=== PATIENT | male | born 1965 | race Caucasian/White ===

== ENCOUNTER 2021-02-10 20:26 | Emergency (ER) | payer OTHER ==
--- NOTE | 2021-02-10 21:23 | EDM.PDOC ---
ED HPI GENERAL MEDICAL PROBLEM - General Chief Complaint: Respiratory Problem Stated Complaint: SORE THROAT/FEVER/BODY ACHES Time Seen by Provider: 02/10/21 21:10 Source of Information: Reports: Patient, RN Notes Reviewed History Limitations: Reports: No Limitations - History of Present Illness INITIAL COMMENTS - FREE TEXT/NARRATIVE: Patient is a 55-year-old male who presents to the ER for his multiple viral symptoms. Patient states that today he started with nasal congestion, dry cough with some blood-tinged sputum, sore throat, fevers at home with a temperature of 100.2 F at triage. Patient states that he was not vaccinated for COVID-19. He has not been around anyone else has been sick. States he has been working outside, and he was not sure if combination of the wind in the sand could have caused some issues. - Related Data Allergies Allergy/AdvReac Type Severity Reaction Status Date / Time Penicillins Allergy Severe Cannot Verified 02/10/21 21:18 Remember Home Meds: Home Meds Codeine/Promethazine [Phenergan with Codeine] 5 ml PO Q4HR PRN #120 ml 02/10/21 [Rx] ED ROS GENERAL - Review of Systems Review Of Systems: Comprehensive ROS is negative, except as noted in HPI. ED EXAM, GENERAL - Physical Exam Exam: See Below Exam Limited By: No Limitations General Appearance: Alert, WD/WN, No Apparent Distress Respiratory/Chest: No Respiratory Distress, Lungs Clear, Normal Breath Sounds, No Accessory Muscle Use, Chest Non-Tender Cardiovascular: Normal Peripheral Pulses, Regular Rate, Rhythm, No Edema Peripheral Pulses: 2+: Radial (L), Radial (R) Extremities: Normal Inspection, Normal Capillary Refill Neurological: Alert, Oriented, Normal Cognition, No Motor/Sensory Deficits Psychiatric: Normal Affect, Normal Mood Skin Exam: Warm, Dry, Intact, Normal Color, No Rash Course - Vital Signs Last Recorded V/S: Last Vital Signs Temp 100.2 F 02/10/21 21:15 Pulse 104 H 02/10/21 21:15 Resp 16 02/10/21 21:15 BP 143/95 H 02/10/21 21:15 Pulse Ox 97 02/10/21 21:15 - Orders/Labs/Meds Orders: Active Orders 24 hr Category Date Time Status Chest 1V Frontal [CR] Stat Exams 02/10/21 21:11 Ordered Labs: Laboratory Tests 02/10/21 02/10/21 02/10/21 Range/Units 21:10 21:25 21:25 WBC 6.66 (4.23-9.07) K/mm3 RBC 4.35 L (4.63-6.08) M/mm3 Hgb 14.1 (13.7-17.5) gm/dl Hct 42.8 (40.1-51.0) % MCV 98.4 H (79.0-92.2) fl MCH 32.4 H (25.7-32.2) pg MCHC 32.9 (32.2-35.5) g/dl RDW Std Deviation 50.5 H (35.1-43.9) fL Plt Count 186 (163-337) K/mm3 MPV 10.3 (9.4-12.3) fl Neut % (Auto) 48.5 (34.0-67.9) % Lymph % (Auto) 21.8 (21.8-53.1) % [place] % (Auto) 21.6 H (5.3-12.2) % Eos % (Auto) 6.8 (0.8-7.0) Baso % (Auto) 1.1 (0.1-1.2) % Neut # (Auto) 3.24 (1.78-5.38) K/mm3 Lymph # (Auto) 1.45 (1.32-3.57) K/mm3 [place] # (Auto) 1.44 H (0.30-0.82) K/mm3 Eos # (Auto) 0.45 (0.04-0.54) K/mm3 Baso # (Auto) 0.07 (0.01-0.08) K/mm3 Sodium 140 (136-145) mEq/L Potassium 3.6 (3.5-5.1) mEq/L Chloride 103 (98-107) mEq/L Carbon Dioxide 29 (21-32) mEq/L Anion Gap 11.6 (5-15) BUN 5 L (7-18) mg/dL Creatinine 1.3 (0.7-1.3) mg/dL Est Cr Clr Drug Dosing 60.65 mL/min Estimated GFR (MDRD) 57 (>60) mL/min BUN/Creatinine Ratio 3.8 L (14-18) Glucose 93 (70-99) mg/dL Calcium 9.0 (8.5-10.1) mg/dL Total Bilirubin 0.6 (0.2-1.0) mg/dL AST 54 H (15-37) U/L ALT 50 (16-63) U/L Alkaline Phosphatase 50 (46-116) U/L C-Reactive Protein 0.9 (<1.0) mg/dL Total Protein 8.0 (6.4-8.2) g/dl Albumin 4.3 (3.4-5.0) g/dl Globulin 3.7 gm/dL Albumin/Globulin Ratio 1.2 (1-2) SARS-CoV-2 RNA (ALIZA) Positive H (NEGATIVE) Group A Strep (PCR) (NOT DETECT) 02/10/21 Range/Units 21:30 WBC (4.23-9.07) K/mm3 RBC (4.63-6.08) M/mm3 Hgb (13.7-17.5) gm/dl Hct (40.1-51.0) % MCV (79.0-92.2) fl MCH (25.7-32.2) pg MCHC (32.2-35.5) g/dl RDW Std Deviation (35.1-43.9) fL Plt Count (163-337) K/mm3 MPV (9.4-12.3) fl Neut % (Auto) (34.0-67.9) % Lymph % (Auto) (21.8-53.1) % [place] % (Auto) (5.3-12.2) % Eos % (Auto) (0.8-7.0) Baso % (Auto) (0.1-1.2) % Neut # (Auto) (1.78-5.38) K/mm3 Lymph # (Auto) (1.32-3.57) K/mm3 [place] # (Auto) (0.30-0.82) K/mm3 Eos # (Auto) (0.04-0.54) K/mm3 Baso # (Auto) (0.01-0.08) K/mm3 Sodium (136-145) mEq/L Potassium (3.5-5.1) mEq/L Chloride (98-107) mEq/L Carbon Dioxide (21-32) mEq/L Anion Gap (5-15) BUN (7-18) mg/dL Creatinine (0.7-1.3) mg/dL Est Cr Clr Drug Dosing mL/min Estimated GFR (MDRD) (>60) mL/min BUN/Creatinine Ratio (14-18) Glucose (70-99) mg/dL Calcium (8.5-10.1) mg/dL Total Bilirubin (0.2-1.0) mg/dL AST (15-37) U/L ALT (16-63) U/L Alkaline Phosphatase (46-116) U/L C-Reactive Protein (<1.0) mg/dL Total Protein (6.4-8.2) g/dl Albumin (3.4-5.0) g/dl Globulin gm/dL Albumin/Globulin Ratio (1-2) SARS-CoV-2 RNA (ALIZA) (NEGATIVE) Group A Strep (PCR) Not detected (NOT DETECT) Meds: Medications Discontinued Medications Generic Name Dose Route Start Last Admin Trade Name Freq PRN Reason Stop Dose Admin Promethazine HCl/Codeine 10 ml 02/10/21 22:40 Codeine/Promethazine 10-6.25 Mg/5 Ml Syrup 5 Ml Ud Cup PO 02/10/21 22:41 ONETIME ONE - Re-Assessments/Exams Free Text/Narrative Re-Assessment/Exam: 02/10/21 21:22 Patient presents to the ER for the evaluation of his multiple upper respiratory symptoms. We will get a COVID-19 swab, strep swab, basic labs and a chest x-ray for further evaluation. 02/10/21 22:12 Laboratories computer has gone down apparently but they did call back and said that the patient was Covid positive, strep was negative, and the remaining portion of the CMP is essentially unremarkable. The patient's CRP is 0.9. Since the patient only started having symptoms today, we will have him monitor his symptoms and follow-up in Covid clinic if he should worsen, to see if he can be given some monoclonal antibody therapy on outpatient basis. Departure - Departure Time of Disposition: 22:12 Disposition: Home, Self-Care 01 Condition: Good Clinical Impression: COVID-19 - Discharge Information *PRESCRIPTION DRUG MONITORING PROGRAM REVIEWED*: No *COPY OF PRESCRIPTION DRUG MONITORING REPORT IN PATIENT ADRIANA: No Prescriptions: Codeine/Promethazine [Phenergan with Codeine] 5 ml PO Q4HR PRN #120 ml PRN Reason: Cough Instructions: COVID-19 Frequently Asked Questions, 10 Things You Can Do to Manage Your COVID-19 Symptoms at Home - [facility] (11/21/2020) Referrals: PCP,Not In Area [Primary Care Provider] - Forms: ED Department Discharge Additional Instructions: You were seen in the ER today for ongoing and/or worsening respiratory symptoms. Your chest x-ray showed subtle signs of viral pneumonia at this time; which is typical for COVID-19. Your oxygen levels were great at 96-97% on room air. Please try to increase your oral fluid intake, and eat multiple small meals throughout the day, to keep yourself healthy. You need to keep yourself nourished in order to fight off this disease. You can try a liquid diet like gatorade/powerade as well to get your electrolytes. You may take 500 mg Tylenol every hours 6 hours for pain/fever relief. Do not exceed 4000 mg Tylenol in a 24-hour time span. However, running a fever is your body's natural response to illness, and it allows the body to develop antibodies to disease, we are recommending trying to limit the use of Tylenol as much as possible to allow your body's natural immune response. You were given a prescription for some cough medicine, you may take 10 mL p.o. every 4-6 hours as needed for cough. This medication was electronically sent to the [place] pharmacy located in the [facility] grocery store. Recommend you obtain a pulse oximeter and monitor your oxygen levels at home, you should place the monitor on your finger, and sit in a calm, quiet position for a few minutes and then record the number that is on the screen. If this consistently below 90% on room air without movement, this would be cause for concern to come back to the hospital for further management of your COVID-19 disease. Please follow all guidance set forth from [facility], regarding isolation purposes for your disease process. General isolation times are 10 days from when you started being symptomatic. I would recommend that you keep in touch with our Covid clinic, , and obtain an appointment sometime this week for reevaluation and to make sure that your symptoms are getting better as expected. You may qualify for monoclonal antibody therapy, that can be done on outpatient basis, but you will need to have a provider assess you for this, if your symptoms should worsen. Sepsis Event Note (ED) - Evaluation Sepsis Screening Result: No Definite Risk - Focused Exam Vital Signs: Vital Signs Temp Pulse Resp BP Pulse Ox 02/10/21 21:15 100.2 F 104 H 16 143/95 H 97 - My Orders Last 24 Hours: My Active Orders 02/10/21 21:11 Chest 1V Frontal [CR] Stat - Assessment/Plan Last 24 Hours: My Active Orders 02/10/21 21:11 Chest 1V Frontal [CR] Stat
[2021-02-10] MEDS ORDERED: Codeine/Promethazine 10-6.25 MG/5 ML Syrup 5 ML UD Cup PO ONE (22:40)
--- NOTE | 2021-02-11 07:52 | CR ---
Chest: Frontal view of the chest was obtained. Comparison: No prior chest imaging is available. Heart size and mediastinum are normal. Lungs are clear with no acute parenchymal change. Slight scoliosis is noted within the spine. Mild degenerative change is seen within the spine. Prior cervical spine surgery is noted. Impression: 1. Incidental findings as described above. 2. Nothing acute is definitely seen on frontal chest x-ray. Diagnostic code #2
== END 2021-02-10 23:00 | disposition home or self-care (01) ==
LOC: JD.ED 20:26
DX: U07.1 COVID-19 (principal); Z88.0 Allergy status to penicillin
CPT/HCPCS: 36415; 71045; 71045-26; 80053; 85025; 86140; 87651-QW; 99283-25; U0002

== ENCOUNTER 2021-02-13 15:45 | Emergency (ER) | payer OTHER ==
--- NOTE | 2021-02-13 18:13 | CR ---
Chest: Portable view of the chest was obtained. Comparison: Prior chest x-ray of 02/10/21. Heart size and mediastinum are within normal limits. Minimal parenchymal density is seen within the left lung base. Difficult to exclude small area of pneumonia. Lungs otherwise are clear. Prior cervical spine surgery is noted. Scattered degenerative spurring is noted within the spine. Surgical clips are seen from prior cholecystectomy. Impression: 1. Slight parenchymal density within the left lung base presumably due to pneumonia. 2. Other findings which are believed to be incidental as described above. Diagnostic code #3
[2021-02-13] MEDS ORDERED: Dexamethasone 4 MG Tab PO ONE (18:57)
--- NOTE | 2021-02-13 18:57 | EDM.PDOC ---
ED HPI GENERAL MEDICAL PROBLEM - General Chief Complaint: Respiratory Problem Stated Complaint: COVID +/LOW O2 Time Seen by Provider: 02/13/21 16:22 Source of Information: Reports: Patient History Limitations: Reports: No Limitations - History of Present Illness INITIAL COMMENTS - FREE TEXT/NARRATIVE: 55-year-old male presents the emergency department today with complaints of wo rsening Covid symptoms and increasing shortness of breath. Patient states that he started having symptoms and tested positive for Covid on 02/10/2021, 3 days ago. He was seen here in the emergency department however did not receive any monoclonal antibody treatment at that time. Patient is concerned as he states his home oxygen has been 86%. Onset: Other (ED vital signs reveal a temp of 97.3, pulse 100, respiratory rate of 20, blood pressure 128/81, pulse ox 86% on room air) Neck Pain Score (Numeric/FACES): 7 - Related Data Allergies Allergy/AdvReac Type Severity Reaction Status Date / Time Penicillins Allergy Severe Cannot Verified 02/13/21 16:18 Remember Home Meds: Home Meds Codeine/Promethazine [Phenergan with Codeine] 5 ml PO Q4HR PRN #120 ml 02/10/21 [Rx] Albuterol Sulfate [Albuterol Sulfate HFA] 8.5 gm INH Q2H PRN #1 ea 02/13/21 [Rx] Benzonatate [Tessalon Perle] 100 mg PO TID PRN #20 capsule 02/13/21 [Rx] dexAMETHasone [Dexamethasone] 6 mg PO DAILY #14 tablet 02/13/21 [Rx] Past Medical History - Infectious Disease History Infectious Disease History: Reports: Novel Coronavirus - Past Surgical History GI Surgical History: Reports: Cholecystectomy Social & Family History - Tobacco Use Tobacco Use Status *Q: Never Tobacco User Second Hand Smoke Exposure: No - Caffeine Use Caffeine Use: Reports: Coffee - Recreational Drug Use Recreational Drug Use: No ED ROS GENERAL - Review of Systems Review Of Systems: Comprehensive ROS is negative, except as noted in HPI. ED EXAM, GENERAL - Physical Exam Exam: See Below Exam Limited By: No Limitations General Appearance: Alert, WD/WN, Mild Distress Ears: Normal External Exam, Hearing Grossly Normal Nose: Normal Inspection Throat/Mouth: Normal Inspection, Normal Lips, Normal Voice, No Airway Compromise Head: Atraumatic Neck: Normal Inspection, Supple Respiratory/Chest: Normal Breath Sounds, No Accessory Muscle Use, Chest Non- Tender, Respiratory Distress, Crackles (Fine crackles noted to bilateral bases). No: Lungs Clear Cardiovascular: Normal Peripheral Pulses, Regular Rate, Rhythm, No Edema, No Murmur Peripheral Pulses: 2+: Radial (L), Radial (R) GI/Abdominal: Normal Bowel Sounds, Soft, Non-Tender, No Distention (Male) Exam: Deferred Rectal (Males) Exam: Deferred Back Exam: Normal Inspection Extremities: Normal Inspection Neurological: Alert, Oriented, Normal Cognition Psychiatric: Normal Affect, Normal Mood Skin Exam: Warm, Dry, Intact, Normal Color, No Rash Lymphatic: No Adenopathy Course - Vital Signs Text/Narrative:: 55-year-old male who as stated above presents with worsening shortness of breath associated with Covid. Upon exam, the patient's O2 saturations are 87% on room air. O2 was applied at 2 L per nasal cannula and the patient's oxygen saturations increased to 97%. Lung sounds are diminished with crackles noted to the bilateral bases. Will obtain a portable chest x-ray and lab studies to include a CBC, CMP, C-reactive protein, magnesium level as well as a D-dimer. Last Recorded V/S: Last Vital Signs Temp 99.6 F 02/13/21 17:20 Pulse 96 02/13/21 17:20 Resp 20 02/13/21 17:20 BP 115/83 02/13/21 17:20 Pulse Ox 100 02/13/21 17:20 - Orders/Labs/Meds Labs: Laboratory Tests 02/13/21 02/13/21 02/13/21 Range/Units 17:01 17:01 17:07 WBC 5.63 (4.23-9.07) K/mm3 RBC 4.50 L (4.63-6.08) M/mm3 Hgb 14.5 (13.7-17.5) gm/dl Hct 44.4 (40.1-51.0) % MCV 98.7 H (79.0-92.2) fl MCH 32.2 (25.7-32.2) pg MCHC 32.7 (32.2-35.5) g/dl RDW Std Deviation 51.4 H (35.1-43.9) fL Plt Count 158 L (163-337) K/mm3 MPV 10.1 (9.4-12.3) fl Neut % (Auto) 59.8 (34.0-67.9) % Lymph % (Auto) 22.9 (21.8-53.1) % [place] % (Auto) 16.5 H (5.3-12.2) % Eos % (Auto) 0.2 L (0.8-7.0) Baso % (Auto) 0.4 (0.1-1.2) % Neut # (Auto) 3.37 (1.78-5.38) K/mm3 Lymph # (Auto) 1.29 L (1.32-3.57) K/mm3 [place] # (Auto) 0.93 H (0.30-0.82) K/mm3 Eos # (Auto) 0.01 L (0.04-0.54) K/mm3 Baso # (Auto) 0.02 (0.01-0.08) K/mm3 D-Dimer, Quantitative 0.59 H (0.19-0.50) mg/L Sodium 133 L (136-145) mEq/L Potassium 4.5 (3.5-5.1) mEq/L Chloride 95 L (98-107) mEq/L Carbon Dioxide 31 (21-32) mEq/L Anion Gap 11.5 (5-15) BUN 12 (7-18) mg/dL Creatinine 1.3 (0.7-1.3) mg/dL Est Cr Clr Drug Dosing 60.65 mL/min Estimated GFR (MDRD) 57 (>60) mL/min BUN/Creatinine Ratio 9.2 L (14-18) Glucose 95 (70-99) mg/dL Calcium 8.9 (8.5-10.1) mg/dL Magnesium 2.0 (1.8-2.4) mg/dL Total Bilirubin 0.3 (0.2-1.0) mg/dL AST 64 H (15-37) U/L ALT 57 (16-63) U/L Alkaline Phosphatase 43 L (46-116) U/L C-Reactive Protein 1.1 H* (<1.0) mg/dL Total Protein 7.6 (6.4-8.2) g/dl Albumin 3.8 (3.4-5.0) g/dl Globulin 3.8 gm/dL Albumin/Globulin Ratio 1.0 (1-2) - Re-Assessments/Exams Free Text/Narrative Re-Assessment/Exam: 02/13/21 18:55 Radiologist impression portable view of the chest: 1. Slight parenchymal density within the left lung base presumably due to pneumonia. 2. Other findings which are believed to be incidental as described above. 02/13/21 18:56 Hematology reveals a WBC of 5.63, hemoglobin 14.5, hematocrit 44.4, platelet count 158 Coagulation reveals a D-dimer of 0.59 Chemistry reveals a sodium 133, potassium 4.5, carbon dioxide 31, anion gap 11.5, BUN 12, creatinine 1.3, glucose 95, magnesium 2.0, C-reactive protein 1.1 Patient does meet criteria for hospitalization however there are no beds available at this facility or at either of the hospitals in the local area. Patient is not wanting to be transported out of state. He will be discharged h ome with oxygen and dexamethasone. We will also order an albuterol inhaler for this patient. Departure - Departure Time of Disposition: 19:03 Disposition: Home, Self-Care 01 Condition: Good Clinical Impression: Hypoxemia, Pneumonia due to COVID-19 virus - Discharge Information Prescriptions: Albuterol Sulfate [Albuterol Sulfate HFA] 8.5 gm INH Q2H PRN #1 ea PRN Reason: Shortness Of Breath dexAMETHasone [Dexamethasone] 6 mg PO DAILY #14 tablet Benzonatate [Tessalon Perle] 100 mg PO TID PRN #20 capsule PRN Reason: Cough Referrals: PCP,None [Primary Care Provider] - Additional Instructions: You were seen in the emergency department with worsening shortness of breath associated with Covid. Chest x-ray was completed which did show some pneumonia however this is viral in origin and cannot be treated with antibiotics. Lab studies were also completed which were essentially unremarkable. You are being sent home on oxygen. You can use 2 L for shortness of breath. While you are in the emergency department you received a steroid called dexamethasone. A prescription for this medication has been sent to your pharmacy. You will need to take 6 mg daily for the next 9 days starting tomorrow. This should help to decrease inflammation and severity of Covid. I have also sent a prescription for a medication called Tessalon Perles which are used for cough. You can take 1-2 tabs up to 3 times daily for cough. And albuterol inhaler has been prescribed as well. You may use 2 puffs up to every 2 hours as needed for shortness of breath. Keep in mind if you are consistently using this every 2 hours that it can cause a racing heartbeat. Go home and rest. Be sure to drink plenty of fluids and eat small frequent meals. You will need to be reevaluated once you are off of quarantine by a primary care provider to decide how much longer you will need to use the oxygen for. Should your condition worsen or change, do not hesitate returning to the emergency department. Sepsis Event Note (ED) - Evaluation Sepsis Screening Result: No Definite Risk - Focused Exam Vital Signs: Vital Signs Temp Pulse Resp BP Pulse Ox 02/13/21 17:20 99.6 F 96 20 115/83 100 02/13/21 16:14 97.3 F 100 20 128/81 86 L
--- NOTE | 2021-02-17 08:15 | PCM.EKG ---
#1 Interpretation EKG Date: 02/17/21 Time: 06:11 Rhythm: NSR Rate (Beats/Min): 99 [place]: Normal P-Wave: Present QRS: Normal ST-T: Normal QT: Normal Comparison: NA - No Prior EKG EKG Interpretation Comments: Per Dr. Morales interpretation: Sinus rhythm at 99 bpm; borderline left axis deviation; no STEMI; early repolarization
== END 2021-02-13 19:35 | disposition home or self-care (01) ==
LOC: JD.ED 15:45
DX: U07.1 COVID-19 (principal); J12.82 Pneumonia due to coronavirus disease 2019; Z88.0 Allergy status to penicillin
CPT/HCPCS: 36415; 71045; 80053; 83735; 85025; 85379; 86140; 93005; 99285; J8540